=== PATIENT | male | born 1980 | race African-American/Black ===

== ENCOUNTER 2022-03-06 15:39 | Emergency (ER) | payer MEDICAID, OTHER ==
[~2022-03-06] VITALS: Ht 175.3 cm; Wt 69.0 kg
[2022-03-06] MEDS ORDERED: CEPH500C2 MT (18:53)
[2022-03-06 19:18] VITALS: BP 153/91
== END 2022-03-06 19:20 ==
LOC: ER 15:39
DX: S20.212A Contusion of left front wall of thorax, initial encounter (principal); L03.011 Cellulitis of right finger; L03.115 Cellulitis of right lower limb; Y08.89XA Assault by other specified means, initial encounter; Y93.89 Activity, other specified; Y92.9 Unspecified place or not applicable; Z02.79 Encounter for issue of other medical certificate
CPT/HCPCS: 71046; 99283

== ENCOUNTER 2022-03-19 08:50 | Emergency (ER) | payer MEDICAID, OTHER ==
[~2022-03-19] VITALS: Ht 182.9 cm; Wt 73.0 kg
[~2022-03-19 08:50] MED LIST: CEPH500C2 MT
[2022-03-19 08:52] VITALS: BP 160/99
[2022-03-19] MEDS ORDERED: TETANUS, DIPHTHERIA, PERTUSSIS VAC/PF 0.5ML (>10YR OLD) IM ONE (09:30)
[2022-03-19] MEDS ORDERED: ACETAMINOPHEN 325MG TABLET PO ONE (09:30)
== END 2022-03-19 11:42 ==
LOC: ER 08:50
DX: M79.18 Myalgia, other site (principal); M25.511 Pain in right shoulder
CPT/HCPCS: 73030; 73562; 99284

== ENCOUNTER 2022-05-17 10:00 | Emergency (ER) | payer MEDICAID, OTHER ==
[~2022-05-17] VITALS: Ht 175.3 cm; Wt 61.0 kg
[2022-05-17] MEDS ORDERED: KETOROLAC 60MG/2ML VIAL IM ONE (11:15)
[2022-05-17] MEDS ORDERED: TC1U15 TP (11:52)
[2022-05-17] MEDS ORDERED: IBUP-2029 MT (11:52)
[2022-05-17] MEDS ORDERED: VALA10002 MT (11:52)
[2022-05-17 11:58] VITALS: BP 137/76
== END 2022-05-17 14:49 | disposition home or self-care (01) ==
LOC: ER 10:00
DX: B02.9 Zoster without complications (principal)
CPT/HCPCS: 96372; 99283; J1885